=== PATIENT | male | born 1955 | race Caucasian/White ===

== ENCOUNTER 2017-09-21 01:31 | Emergency (ER) | payer OTHER ==
[~2017-09-21] VITALS: Ht 182.9 cm; Wt 114.7 kg
[~2017-09-21 01:31] MED LIST: CLONIDINE HCL0.2 MG PO; LEXAPRO20 MG PO; PRINIVIL20 MG; TYLENOL WITH C1 EACH PO; VERAPAMIL HCL80 MG PO
[2017-09-21] MEDS ORDERED: MEDROL DOSEPAK4 MG PO (03:35)
[2017-09-21] MEDS ORDERED: PERCOCET 5/31 TABLET PO (03:35)
[2017-09-21] MEDS ORDERED: VALIUM5 MG PO (03:35)
[2017-09-21 03:45] VITALS: BP 168/90
== END 2017-09-21 03:46 | disposition home or self-care (01) ==
LOC: EME 01:31
DX: M54.16 Radiculopathy, lumbar region (principal); Z86.69 Personal history of other diseases of the nervous system and sense organs
CPT/HCPCS: 99281; 99284; J1885; J7512

== ENCOUNTER 2017-11-05 11:49 | Inpatient (IN) | payer OTHER ==
[~2017-11-05] VITALS: Ht 182.9 cm; Wt 109.7 kg
[~2017-11-05 11:49] MED LIST changes: +MEDROL DOSEPAK4 MG PO; +PERCOCET 5/31 TABLET PO; +VALIUM5 MG PO
[2017-11-05] MEDS ORDERED: CATAPRES0.1 MG PO (19:56)
[2017-11-05] MEDS ORDERED: CATAPRES-TTS 31 EACH TD (19:56)
[2017-11-05] MEDS ORDERED: AMARYL2 MG PO (19:57)
[2017-11-05] MEDS ORDERED: METOPROLOL SUC100 MG PO (19:57)
[2017-11-05] MEDS ORDERED: AMLODIPINE BESY10 MG PO (19:57)
[2017-11-05] MEDS ORDERED: DICLOFENAC POTA50 MG PO (19:57)
[2017-11-05] MEDS ORDERED: FLEXERIL10 MG PO (19:57)
[2017-11-05] MEDS ORDERED: LISINOPRIL40 MG PO (19:58)
[2017-11-05] MEDS ORDERED: GABAPENTIN300 MG PO (19:58)
[2017-11-05 22:00] VITALS: BP 142/72
[2017-11-05 22:02] VITALS: BP 169/90
[2017-11-05 22:14] LABS: HEMATOCRIT 38.4 % (38.0-50.0); HEMOGLOBIN 13.9 G/DL (12.5-16.6); MCHC 36.2 G/DL (30.0-36.0); MCV 91.2 FL (86-99); PLATELET COUNT 208 K/uL (156-360); RBC DIS.WIDTH-CV 11.9 % (11.8-14.6); RBC DIS.WIDTH-SD 39.5 % (39-53); RED BLOOD COUNT 4.21 M/uL (4.00-5.50); WHITE BLOOD COUNT 9.1 K/uL (4.1-10.2)
[2017-11-05 22:22] LABS: CHLORIDE 102 mEq/L (99-109); POTASSIUM 3.7 mEq/L (3.7-5.4); SODIUM 137 mEq/L (136-147)
[2017-11-05 22:23] LABS: GLUCOSE 175 mg/dL (70-99)
[2017-11-05 22:27] LABS: CREATININE 1.1 mg/dL (0.6-1.3); GFR ESTIMATE (CALCULATED) > 59 mL/min/ (58.99-99999)
[2017-11-05 22:28] LABS: UREA NITROGEN (BUN) 22 mg/dL (9-23)
[2017-11-05 23:23] VITALS: BP 142/72
[2017-11-06] VITALS (7 sets, daily range): BP systolic 123–175; BP diastolic 61–97
[2017-11-07 03:58] VITALS: BP 136/72
[2017-11-07 07:42] VITALS: BP 148/52
[2017-11-07 11:32] VITALS: BP 132/74
== END 2017-11-07 15:29 | disposition home or self-care (01) | DRG 520 ==
LOC: EME 11:49 → 3EAST 19:30 → EDOF 19:30 → CANRESERV 19:46 → ENRESERV 19:46 → 3EAST 22:00
PROVIDERS: Neurological Surgery
PROC: 0SB20ZZ Excision of Lumbar Vertebral Disc, Open Approach (ICD-10-PCS; principal; 2017-11-05)
PROC: 01NB0ZZ Release Lumbar Nerve, Open Approach (ICD-10-PCS; principal; 2017-11-05)
DX: M51.16 Intervertebral disc disorders with radiculopathy, lumbar region (principal); M47.26 Other spondylosis with radiculopathy, lumbar region; M21.371 Foot drop, right foot; I10 Essential (primary) hypertension; Z87.730 Personal history of (corrected) cleft lip and palate; E11.9 Type 2 diabetes mellitus without complications; Z91.81 History of falling
CPT/HCPCS: 72100; 72148; 76000; 80048; 82948; 85027; 93005; 99281; 99285; J0131; J0330; J0690; J1100; J1170; J1885; J2405; J2710; J3010; J3370; J3480; J7643